=== PATIENT | male | born 2005 | race Caucasian/White ===

== ENCOUNTER 2025-09-09 02:49 | Emergency (ER) | payer BC, SELFPAY ==
--- OUTSIDE RECORDS SUMMARY | 2025-06-02 04:30 | XMS_ITS ---
Author Organization [facility] Accounts Recei vable Address [address] [place] [address] Care Team Providers Care Wet Silk Hanger Name Role Phone Felisa Holcomb Primary Care Provider Flex Xiong [phone] REASON FOR VISIT 1 month f/u doxy jcj Social History Sex Assigned At : Social History Observation Description Sex Assigned At Male Encounters Encounter Location Date Provider Diagnosis [address] [place] [address] 06/02/2025 Flex Xiong Plan Of Treatment No Information Progress Notes * Albert YODER IDOB:2005 (19 yo M)Acc No.[id number]:06/02/2025 Patient: Albert Zaman I External / 10-EC Provider: ARVIN Gomez :2005 A ge:19 Y S ex:Male Date:06/02/2025 Address:[address] [place] [address] [address] [id number] Pcp:Felisa Holcomb Patient's Default Facility:[facility] Data: * Chief Complaints: * 1 month f/u doxy jcj Billing Information: * Procedure Codes: * Electronic signature of ARVIN Morillo on 09/09/2025 at 03:00 AM PENS AND PENCILS REPAIRER Sign off status: Pending Signatures: No Ad Hoc Signature Added * Provider: ARVIN Gomez Date: 0 06/02/2025 Generated for Francisco preston/Maulik/Susan on: 1 11/10/2024 03:00 AM PENS AND PENCILS REPAIRER
--- OUTSIDE RECORDS SUMMARY | 2025-06-03 02:45 | XMS_ITS ---
Author Organization [facility] Accounts Recei vable Address [address] [place] [address] Care Team Providers Care Clinical Data Assistant Name Role Phone Felisa Holcomb Primary Care Provider Jose Laboy [phone] REASON FOR VISIT VVFU-dbright Social History Sex Assigned At : Social History Observation Description Sex Assigned At Male Encounters Encounter Location Date Provider Diagnosis [address] [place] [id number] 06/03/2025 Jose Laboy Plan Of Treatment No Information Progress Notes * Albert YODER IDOB:2005 (19 yo M)Acc No.[id number]:06/03/2025 Patient: Albert Zaman I External / 10-EC Provider: NADIYA Koehler LCSW :2005 A ge:19 Y S ex:Male Date:06/03/2025 Address:[address] [place] [address] [id number] Pcp:Felisa Holcomb Patient's Default Facility:[facility] Data: * Chief Complaints: * V VFU-dbright * Electronic signature of Jose Laboy LCSW on 09/09/2025 at 03:01 AM PRICE CLERK Sign off status: Pending Signatures: No Ad Hoc Signature Added * Provider: NADIYA Koehler, LIFE SKILLS EDUCATOR Date: 0 06/03/2025 Generated for Francisco preston/Maulik/Susan on: 1 11/10/2024 03:01 AM PRICE CLERK
--- OUTSIDE RECORDS SUMMARY | 2025-06-30 08:15 | XMS_ITS ---
Author Organization [facility] Accounts Recei vable Address [address] [place] [address] Care Team Providers Care Leak Inspector Name Role Phone Felisa Holcomb Primary Care Provider [phone] Jose Laboy [phone] REASON FOR VISIT VVFUTher MS Medications Medication SIG (Take, Route, Frequency, Duration) Notes Start Date End Date Status Azithromycin 250 MG Tablet 2 tablets on the first day, then 1 tablet daily for 4 days Orally Once a day; Duration: 5 days 12/23/2023 Not-Taking hydrOXYzine HCl 25 MG Tablet 1 tablet as needed for anxiety Orally twice a day; Duration: 30 days 01/28/2025 Active FLUoxetine HCl 20 MG Capsule 1 capsule O rally Once a day; Duration: 30 days 05/05/2025 Active methylPREDNISolone 4 MG Tablet Therapy Pack as directed Orally as directed; Duration: 6 days 03/01/2025 Active Doxycycline Hyclate 100 MG Capsule 1 capsule Orally twice a day; Duration: 10 days 03/01/2025 Active Augmentin 500-125 MG Tablet 1 tablet Ora lly every 8 hrs; Duration: 10 day(s) 03/25/2020 Not-Taking Laurel Allergy Childrens 30 MG/5ML Suspension 10 ml as needed Orally Twice a day Not-Taking Benzonatate 200 MG Capsule 1 capsule Ora lly Three times a day; Duration: 10 day(s) 03/25/2020 Not-Taking Xofluza (80 MG Dose) 1 x 80 MG Tablet Therapy Pack as directed Orally as directed; Duration: 1 days 09/25/2022 Not-Taking Ondansetron 8 MG Tablet Disintegrating 1 tablet on the tongue and allow to dissolve as needed Orally three times a day, as needed; Duration: 5 days 12/06/2022 Not-Taking Cefdinir 300 MG Capsule 1 cap(s) Orally twice a day; Duration: 10 days 12/03/2022 Not-Taking Doxycycline Hyclate 100 MG Capsule 1 capsule Orally twice a day Not-Taking metroNIDAZOLE 500 MG Tablet 1 tablet Ora lly Three times a day 7 days Not-Taking Albuterol Sulfate HFA 108 (90 Base) MCG/ACT Aerosol Solution INHALE TWO PUFFS BY MOUTH EVERY 4 TO 6 HOURS NEEDED Inhalation every 6 hrs; Duration: 30 days Active Social History Sex Assigned At : Social History Observation Description Sex Assigned At Male Encounters Encounter Location Date Provider Diagnosis [address] [address] 06/30/2025 Jose Laboy Plan Of Treatment No Information Progress Notes * Albert YODER IDOB:2005 (19 yo M)Acc No.[id number]:06/30/2025 Patient: Lorna markpatrickAlbert Ernestine External / 10-EC Provider: NADIYA Koehler LCSW :2005 A ge:19 Y S ex:Male Date:06/30/2025 Address:[address] [place], [place] [id number] Pcp:Felisa Holcomb Patient's Default Facility:[facility] Data: * Chief Complaints: * V VFUTher MS * Medications: T akingAlbuterol Sulfate HFA 108 (90 Base) MCG/ACT Aerosol Solution INHALE TWO PUFFS BY MOUTH EVERY 4 TO 6 HOURS NEEDED Inhalation every 6 hrs Doxycycline Hyclate 100 MG Capsule 1 capsule Orally twice a day methylPREDNISolone 4 MG Tablet Therapy Pack as directed Orally as directed FLUoxetine HCl 20 MG Capsule 1 capsule Orally Once a day hydrOXYzine HCl 25 MG Tablet 1 tablet as needed for anxiety Orally twice a day Taking Albuterol Sulfate HFA 108 (90 Base) MCG/ACT Aerosol Solution INHALE TWO PUFFS BY MOUTH EVERY 4 TO 6 HOURS NEEDED Inhalation every 6 hrs Taking Doxycycline Hyclate 100 MG Capsule 1 capsule Orally twice a day Taking methylPREDNISolone 4 MG Tablet Therapy Pack as directed Orally as directed Taking FLUoxetine HCl 20 MG Capsule 1 capsule Orally Once a day Taking hydrOXYzine HCl 25 MG Tablet 1 tablet as needed for anxiety Orally twice a day Not-TakingmetroNIDAZOLE 500 MG Tablet 1 tablet Orally Three times a day , Notes to Pharmacist: 7 daysDoxycycline Hyclate 100 MG Capsule 1 capsule Orally twice a day Cefdinir 300 MG Capsule 1 cap(s) Orally twice a day Ondansetron 8 MG Tablet Disintegrating 1 tablet on the tongue and allow to dissolve as needed Orally three times a day, as needed Xofluza (80 MG Dose) 1 x 80 MG Tablet Therapy Pack as directed Orally as directed Benzonatate 200 MG Capsule 1 capsule Orally Three times a day Laurel Allergy Childrens 30 MG/5ML Suspension 10 ml as needed Orally Twice a day Augmentin 500-125 MG Tablet 1 tablet Orally every 8 hrs Azithromycin 250 MG Tablet 2 tablets on the first day, then 1 tablet daily for 4 days Orally Once a day Not-Taking metroNIDAZOLE 500 MG Tablet 1 tablet Orally Three times a day , Notes to Pharmacist: 7 daysNot-Taking Doxycycline Hyclate 100 MG Capsule 1 capsule Orally twice a day Not-Taking Cefdinir 300 MG Capsule 1 cap(s) Orally twice a day Not-Taking Ondansetron 8 MG Tablet Disintegrating 1 tablet on the tongue and allow to dissolve as needed Orally three times a day, as needed Not-Taking Xofluza (80 MG Dose) 1 x 80 MG Tablet Therapy Pack as directed Orally as directed Not- Taking Benzonatate 200 MG Capsule 1 capsule Orally Three times a day Not-Taking Laurel Allergy Childrens 30 MG/5ML Suspension 10 ml as needed Orally Twice a day Not- Taking Augmentin 500-125 MG Tablet 1 tablet Orally every 8 hrs Not-Taking Azithromycin 250 MG Tablet 2 tablets on the first day, then 1 tablet daily for 4 days Orally Once a day Billing Information: * Procedure Codes: * Electronic signature of Jose Laboy LCSW on 09/09/2025 at 03:01 AM SKETCH ARTIST Sign off status: Pending Signatures: No Ad Hoc Signature Added * Provider: NADIYA Koehler LCSW Date: Generated for Francisco preston/Maulik/eTransmitting on: 1 11/10/2024 03:01 AM SKETCH ARTIST
[2025-09-09] VITALS (22 sets, daily range): BP systolic 105–132; BP diastolic 69–86; PULSE 70–79; RESP 16–17; TEMP 36.8; O2SAT 91–99; BMI 35.1
--- OUTSIDE RECORDS SUMMARY | 2025-09-09 03:01 | XMS_ITS | Patient Health Record ---
Author Organization [facility] Accounts Recei vable Address [address] [place] [address] Care Team Providers Care Plan Checker Name Role Phone Felisa Holcomb Primary Care Provider Harriet Cabrera Unavailable [phone] Flex Xiong Unavailable [phone] Jose Laboy Unavailable [phone] Allergies Allergen (clinical drug ingredient) Drug/Non Drug Allergy documented on EMR Reaction Allergy Type Onset Date Status amoxicillin / clavulanate Augmentin hives Drug Allergy Active Penicillin Unknown Drug Allergy Active Reason For Referral Reason med mgmt appt Referral Organization [facility] Eliel Referring Provider First Name Harriet Referring Provider Last Name Deborah Referring Provider Speciality Nurse Prac titioner General Notes Suri Villarreal 11/29 09:28:05 AM >Phone call to patients parent lvmtcb, Suri Villarreal 12/21/2024 09:24:33 AM >Phone call to patients parent lvmtcb, KaitlingustavoLora 12/21/2024 11:52:58 AM > pts mother Libertad called back stating she had a missed call regarding his, Suri Villarreal 12/21/2024 11:59:15 AM >Phone call to patients mother. Libertad would like patient to be scheduled with [facility] when her schedule becomes available., Juana Adame 12/23/2024 12:22:33 PM >pt mom called in regards., Suri Villarreal 12/23/2024 03:32:26 PM >patient has been scheduled for appt 01/07, Fatou Villarrealiana 01/07/2025 03:06:29 PM >patient kept appt and HUB has been updated. Thank you Referral Priority Urgent Referral Appointment Date 01/07/2025 Medications Medication SIG (Take, Route, Frequency, Duration) Notes Start Date End Date Status Azithromycin 250 MG Tablet 2 tablets on the first day, then 1 tablet daily for 4 days Orally Once a day; Duration: 5 days 12/23/2023 Not-Taking Augmentin 500-125 MG Tablet 1 tablet Ora [...] 1 capsule Orally twice a day Not-Taking hydrOXYzine HCl 25 MG Tablet 1 tablet as needed for anxiety Orally twice a day; Duration: 30 days 01/28/2025 Active metroNIDAZOLE 500 MG Tablet 1 tablet Ora lly Three times a day 7 days Not-Taking FLUoxetine HCl 20 MG Capsule 1 capsule O rally Once a day; Duration: 30 days 05/05/2025 Active Albuterol Sulfate HFA 108 (90 Base) MCG/ACT Aerosol Solution INHALE TWO PUFFS BY MOUTH EVERY 4 TO 6 HOURS NEEDED Inhalation every 6 hrs; Duration: 30 days Active methylPREDNISolone 4 MG Tablet Therapy Pack as directed Orally as directed; Duration: 6 days 03/01/2025 Active Doxycycline Hyclate 100 MG Capsule 1 capsule Orally twice a day; Duration: 10 days 03/01/2025 Active Immunizations Vaccine Route Administration Date Status Comme [facility] VFC (Infanrix) DTaP Diphther ia Tetanus Toxoids Acellular Purtussis Unknown 02/12/2006 Administered VFC (Infanrix) DTaP Diphther ia Tetanus Toxoids Acellular Purtussis Unknown 04/18/2006 Administered VFC (Infanrix) DTaP Diphther ia Tetanus Toxoids Acellular Purtussis Unknown 06/20/2006 Administered VFC (Infanrix) DTaP Diphther ia Tetanus Toxoids Acellular Purtussis Unknown 2006 Administered VFC (Infanrix) DTaP Diphther ia Tetanus Toxoids Acellular Purtussis Unknown 07/23/2007 Administered VFC (Infanrix) DTaP Diphther ia Tetanus Toxoids Acellular Purtussis Unknown 09/01/2012 Administered VFC (Infanrix) DTaP Diphther ia Tetanus Toxoids Acellular Purtussis Unknown 04/29/2017 Administered VFC (Menactra) Meningococcal MCV4 Unknown 04/29/2017 Ad ministered VFC (Prevnar) pneumococcal 7 valent conjugate vaccine Unknown 02/12/2006 Administered VFC (Prevnar) pneumococcal 7 valent conjugate vaccine Unknown 04/18/2006 Administered VFC (Prevnar) pneumococcal 7 valent conjugate vaccine Unknown 2006 Administered VFC (Recombinant/Engerix-B) Hepatitis B vaccine Unknown 2005 Administered VFC (Recombinant/Engerix-B) Hepatitis B vaccine Unknown 02/12/2006 Administered VFC (Recombinant/Engerix-B) Hepatitis B vaccine Unknown 04/18/2006 Administered VFC (Recombinant/Engerix-B) Hepatitis B vaccine Unknown 06/20/2006 Administered VFC (Recombinant/Engerix-B) Hepatitis B vaccine Unknown 07/23/2007 Administered VFC (Varivax) Varicella Unknown 2006 Administered VFC (Varivax) Varicella Unknown 09/01/2012 Administered VFC Hib (ActHIB) Haemophilus b Conjugate vaccine/Tetanus Toxoid Conjugate Unknown 02/12/2006 Administered VFC Hib (ActHIB) Haemophilus b Conjugate vaccine/Tetanus Toxoid Conjugate Unknown 04/18/2006 Administered VFC Hib (ActHIB) Haemophilus b Conjugate vaccine/Tetanus Toxoid Conjugate Unknown 2006 Administered VFC MMR Measles, Mumps and Rubella Unknown 2006 A dministered VFC MMR Measles, Mumps and Rubella Unknown 09/01/2012 A dministered VFC Polio vaccine/Inactivated (IPV) Unknown 02/12/2006 Administered VFC Polio vaccine/Inactivated (IPV) Unknown 04/18/2006 Administered VFC Polio vaccine/Inactivated (IPV) Unknown 06/20/2006 Administered VFC Polio vaccine/Inactivated (IPV) Unknown 07/23/2007 Administered VFC Polio vaccine/Inactivated (IPV) Unknown 09/01/2012 Administered Social History Tobacco Use: Social History Observation Description Date Details (start date - stop date) Former Smoker NA - NA Sex Assigned At : Social History Observation Description Sex Assigned At Male Social History Social History Social Info Question Answer Notes Health Literacy Screening Co mplete (18+) Health Literacy Screening Completed: Yes Date Completed: 06/23/2024 How often do you need to have someone help you when you read instructions, forms or other written material from your doctor or pharmacy?: 2- Rarely Social Determinants of Health Would you like a staff member from [facility] to help you access community resources that you may qualify for? (Examples: Food, housing, utilities, health insurance, etc) No Select all that apply (Scroll for all options) Medical/Dental Care/Vision,Employment,Health Insurance/Ability to afford copays Date 03/01/2025 patient looking for employment/apartment. Discussed local job fairs [place] [employer] web site. and choosing areas to potentially move to to limit search radius. call was lost. patient returns call - interested in housing - Section 8 housing depending on county. [employer] caleb which will allow search for apartment size / monthly rent amount. patient appreciative. Thank you SDOH Follow-up SDOH: Assistance Provided Assisted by: Sheila Aguilar Date Assisted: 03/11/2025 ROSELINE-7 (2018 Edition) Feeling nervous, anxious, or on e dge Not at all Not being able to stop or control worrying Not a t all Worrying too much about different things Not at all Trouble relaxing Several days Being so restless that it is hard to sit still N ot at all Becoming easily annoyed or irritable More than h shelter the days Feeling afraid as if something awful might happe n Not at all Total ROSELINE-7 Score 3 If you checked any problems, how difficult have they made it for you to do your work, take care of things at home, or get along with other people? Somewhat difficult Interpretation of Total (0 to 4) No Anxiety Smoking Status (12+) Tobacco use: Former smoker Additional Findings: Tobacco user e-cigarette Sexual History: Had sex in the past 12 months (vaginal , oral, or anal) No Have you ever had an STD? No Recreational Drug Use (12+) In the last year, did you ever use recreational drugs or prescription drugs for non-medical reasons?: Yes What kind of recreational drugs? Marijuana In the last year, did you ever find yourself using drugs more than you meant to?: No In the last year, did you ever think maybe you should cut down on drug use?: No Date counseled on the affects of recreational dr ug use 03/01/2025 Alcohol Screening (12+) Did you have a d rink containing alcohol in the past year? Yes How often did you have six or more drinks on one occasion in the past year? Never (0 point) How many drinks did you have on a typical day when you were drinking in the past year? 1 or 2 drinks (0 point) How often did you have a drink containing alcohol in the past year? 2 to 4 times a month (2 points) Points 2 Interpretation Negative Date of Last PHQ-9 Date of Last PHQ 04/08/2025 Date of Tobacco Screening Date of Tobacco Screening Depression Screening PHQ-9 ( If positive PHQ-2) Little interest or pleasure doing things? Not at all Feeling down, depressed, or hopeless? Not at all Trouble falling or staying asleep, or sleeping t oo much? Several days Feeling tired or having little energy? Several d ays Poor appetite or overeating? Not at all Feeling bad about yourself-o r that you are failure or have let yourself or family down? Not at all Trouble concentrating on thi ngs, such as reading the newspaper or watching television? Not at all Moving or speaking so slowly that other people could have noticed. Or the opposite- being so fidgety or restless that you have been moving around a lot more than usual Not at all Thoughts that you would be b neel off , or of hurting yourself in some way? Not at all Total Score 2 Intepretation Minimal Depression PHQ2 (12+) Little interest or pleasure in doing thin gs? Several days Feeling down, depressed, or hopeless? Several da ys Total Score 2 Problems Problem Type SNOMED Code ICD Code Onset Dates Problem Status W/U Status Risk Notes Problem Cough (78846667) Cough (R05) Active confirmed Problem Sinusitis (24470513) Sinusitis (J32.9) Active confirmed Problem Anxiety (19305224) Anxiety (F41.9) Active confirmed Problem Maxillary sinusitis (39170867) Maxillary sinusitis (J32.0) Active confirmed Problem Autism spectrum disorder (74153341) Autism spectrum disorder (F84.0) Active confirmed Problem Asthma without status asthmaticus (75034873) Reactive airway disease, unspecified asthma severity, uncomplicated (J45.909) Active confirmed Problem Moderate recurrent major depression (75962464) Moderate episode of recurrent major depressive disorder (F33.1) Active confirmed Problem Difficulty sleeping (487907451) Sleep difficulties (G47.9) Active confirmed Vital Signs Heart Rate 90 BPM 03/01/2025 Temperature 97.3 degrees Fahrenheit 03/01/2025 Respiratory Rate 20 /min 03/01/2025 Oximetry 978 Percent 03/01/2025 Blood pressure diastolic 76 mm Hg 03/01/2025 BMI Percentile 99.17 03/01/2025 Height 73 in 03/01/2025 Blood pressure systolic 128 mm Hg 03/01/2025 Weight 275.8 lbs 03/01/2025 BMI 36.38 kg/m2 03/01/2025 Encounters Encounter Location Date Provider Diagnosis [address] [address] 12/07/2024 Harriet Cabrera [address] [address] 12/16/2024 Harriet Cabrera [address] [address] 12/23/2024 Felisa Holcomb [address] [address] 01/07/2025 Felisa Holcomb [facility] [address] [place] [address] 01/11/2025 Felisa Holcomb [facility] [address] [place] [address] 01/14/2025 Flex Xiong [facility] [address] [place] [address] 02/23/2025 Felisamacario Holcomb [facility] [address] [place] [address] 02/23/2025 [facility] [address] [facility] [place] [address] 03/01/[facility] [address] [facility] [place] [address] 03/01/2025 Flex Xiong [facility] [address] [facility] [place] [address] 03/09/2025 [facility] [address] [facility] [place] [address] 03/11/2025 Felisa [facility] [address] [place] [address] 04/27/[address] [address] 05/10/2025 Felisa [facility] [address] [place] [address] 05/13/2025 Jose Laboy [address] [address] 06/02/2025 Flex Xiong Anxiety F41.9 [facility] [address] [facility] [place] [address] 06/08/2025 Jose Laboy [facility] [address] [facility] [place] [address] 06/30/2025 Jose Laboy [facility] [address] [facility] [place] [address] 07/12/2025 Jose Laboy [address] [place] [phone] 09/06/2025 Felisa Zhang [facility] [address] [facility] [place] [address] 03/01/2025 Felisa Zhang Maxillary sinusitis J32.0 ; Wheezing R06.2 ; Acute cough R05.1 and Shortness of breath R06.02 [facility] [address] [place] [address] 03/01/2025 Flex Xiong Moderate episode of recurrent major depressive disorder F33.1 and Anxiety F41.[address] [place] [address] 01/28/2025 Flex Xiong Anxiety F41.9 and Moderate episode of recurrent major depressive disorder F33.[address] [place] [address] 01/07/2025 Jose Narda Anxiety F41.9 and Depression, unspecified depression type F32.A [address] [id number] 03/30/2025 Flex Xiong Anxiety F41.9 and Moderate episode of recurrent major depressive disorder F33.[address] [id number] 05/05/2025 Flex Xiong Moderate episode of recurrent major depressive disorder F33.1 ; Anxiety F41.9 and Sleep difficulties G47.[address] [id number] 05/25/2025 Flex Xiong Moderate episode of recurrent major depressive disorder F33.1 and Anxiety F41.[address] [place] [address] 04/08/2025 Josetabatha Laboy Autism spectrum disorder F84.0 ; Moderate episode of recurrent major depressive disorder F33.1 and Anxiety F41.[address] [place] [address] 03/02/2025 Jose Bramwell Anxiety F41.9 and Moderate episode of recurrent major depressive disorder F33.[address] [place] [address] 03/18/2025 Jose Bramwell Moderate episode of recurrent major depressive disorder F33.1 ; Anxiety F41.9 and Autism spectrum disorder F84.[address] [place] [address] 02/01/2025 Joes Narda Anxiety F41.9 and Moderate episode of recurrent major depressive disorder F33.1 Assessments Encounter Date Diagnosis (ICD Code) Assessment Notes Treatment Notes Treatment Clinical Notes Section Notes 01/07/2025 Anxiety (ICD-10 - F41.9) 01/07/2025 Depression, unspecified depression type (ICD-10 - F32.A) 01/28/2025 Anxiety (ICD-10 - F41.9) 01/28/2025 Moderate episode of recurrent major depressive disorder (ICD-10 - F33.1) 02/01/2025 Anxiety (ICD-10 - F41.9) 03/01/2025 Wheezing (ICD-10 - R06.2) 03/01/2025 Maxillary sinusitis (ICD-10 - J32.0) Patient symptoms are consistent with acute sinusitis. Medications as prescribed. Recommneded saline nasal washes, fluids, rest and motrin for symtpom relief. We discussed worsening s/s when to RTC or go to Er. All questions were addressed, agrees with tx plan. 03/01/2025 Anxiety (ICD-10 - F41.9) 03/01/2025 Moderate episode of recurrent major depressive disorder (ICD-10 - F33.1) 03/02/2025 Anxiety (ICD-10 - F41.9) 03/02/2025 Moderate episode of recurrent major depressive disorder (ICD-10 - F33.1) 04/08/2025 Autism spectrum disorder (ICD-10 - F84.0) 04/08/2025 Moderate episode of recurrent major depressive disorder (ICD-10 - F33.1) 05/05/2025 Anxiety (ICD-10 - F41.9) 05/05/2025 Moderate episode of recurrent major depressive disorder (ICD-10 - F33.1) 05/25/2025 Anxiety (ICD-10 - F41.9) 05/25/2025 Moderate episode of recurrent major depressive disorder (ICD-10 - F33.1) 06/02/2025 Anxiety (ICD-10 - F41.9) 03/30/2025 Anxiety (ICD-10 - F41.9) 03/30/2025 Moderate episode of recurrent major depressive disorder (ICD-10 - F33.1) 03/18/2025 Anxiety (ICD-10 - F41.9) 03/18/2025 Moderate episode of recurrent major depressive disorder (ICD-10 - F33.1) 03/18/2025 Autism spectrum disorder (ICD-10 - F84.0) 05/05/2025 Sleep difficulties (ICD-10 - G47.9) 04/08/2025 Anxiety (ICD-10 - F41.9) 03/01/2025 Acute cough (ICD-10 - R05.1) 02/01/2025 Moderate episode of recurrent major depressive disorder (ICD-10 - F33.1) 03/01/2025 Shortness of breath (ICD-10 - R06.02) 01/28/2025 Other Patient has history of depression and anxiety, and due to life changes has extra stress right now. Will start escitalopram and hydroxyzine and follow up in one month. patient verbalizes understanding and agrees with plan. -Reviewed diagnostic criteria for depression and anxiety -Reviewed previous records-Reviewed medications, updated medication list -Reviewed Plans for medication management New orders for:Medications: as listedLabs ordered:Follow up: 1 month Discussed options for management including (as applicable): -With respect to medications, I have provided ongoing education regarding the purpose and indications (including off-label use when applicable), risks (including related to alcohol intake, operating heavy machinery when applicable), benefits, side effects, alternatives, contraindication s, rationale for use, importance of adherence, potential drug interactions, and plans for appropriate monitoring.-Revi ewed communication plan if problems-Continu e follow up with PCP for preventive care and management of medical issues Self-care : General Anxiety Disorder Other than taking medicine and going to therapy, you can help yourself get better by: 1 Reducing caffeine [address] 3 Exercising, getting enough rest, and eating healthy foods 4 Consider Talk therapy 5 Consider Group therapyNo matter what type of depression you have and how severe it is, the following self-care steps can help: Get enough sleep. Follow a healthy, nutritious diet. Exercise regularly. Avoid alcohol, marijuana, and other recreational drugs. Get involved in activities that make you happy. Spend time with family and friends. If you are a adventist or spiritual person, talk to a event staff member or travel money advisor. Consider meditation, gini chi, or other relaxation methods. Add omega-3 fatty acids to your diet. You can get them from lloq-ads-bghppke supplements or by eating fish such as tuna, salmon, or mackerel. When to Contact a Medical Professional Call 911, a suicide hotline, or go to a nearby emergency room if you have thoughts of harming yourself or others. Call your doctor if: You hear voices that are not there. You cry often without cause. Your depression has affected your work, school, or family life for longer than 2 weeks. You have three or more symptoms of depression. You think one of your current medications may be making you feel depressed -- DO NOT change or stop taking any medications without talking to your doctor. You think you should cut back on drinking, a family member or friend has asked you to cut back, you feel guilty about the amount of alcohol you drink, or you drink alcohol first thing in the morning. QUALITY TECHNICIAN/Depression - call with any suicidal ideations, encourage support. 03/01/2025 Other A Healthy Lifestyle: Care Instructions material was printed 03/01/2025 Other will increase escitalopram to 10 mg to help with current depression and anxiety symptoms and to follow up in one month. Reviewed medications, updated medication list Discussed options for management Medications:as listed Labs ordered: Follow up:1 month Discussed options for management including (as applicable): -With respect to medications, I have provided ongoing education regarding the purpose and indications (including off-label use when applicable), risks (including related to alcohol intake, operating heavy machinery when applicable), benefits, side effects, alternatives, contraindication s, rationale for use, importance of adherence, potential drug interactions, and plans for appropriate monitoring. -Reviewed communication plan if problems -Continue follow up with PCP for preventive care and management of medical issues Self-care : General Anxiety Disorder Other than taking medicine and going to therapy, you can help yourself get better by: 1 Reducing caffeine [address] 3 Exercising, getting enough rest, and eating healthy foods 4 Consider Talk therapy 5 Consider Group therapy No matter what type of depression you have and how severe it is, the following self-care steps can help: Get enough sleep. Follow a healthy, nutritious diet. Exercise regularly. Avoid alcohol, marijuana, and other recreational drugs. Get involved in activities that make you happy. Spend time with family and friends. If you are a adventist or spiritual person, talk to a event staff member or travel money advisor. Consider meditation, gini chi, or other relaxation methods. Add omega-3 fatty acids to your diet. You can get them from btle-bnc-vynpitm supplements or by eating fish such as tuna, salmon, or mackerel. When to Contact a Medical Professional Call 911, a suicide hotline, or go to a nearby emergency room if you have thoughts of harming yourself or others. Call your doctor if: You hear voices that are not there. You cry often without cause. Your depression has affected your work, school, or family life for longer than 2 weeks. You have three or more symptoms of depression. You think one of your current medications may be making you feel depressed -- DO NOT change or stop taking any medications without talking to your doctor. You think you should cut back on drinking, a family member or friend has asked you to cut back, you feel guilty about the amount of alcohol you drink, or you drink alcohol first thing in the morning. QUALITY TECHNICIAN/Depression - call with any suicidal ideations, encourage support. 03/30/2025 Other Patient has had improvements in his living arrangement and is getting a new job. He is also getting along better with is parents. Will continue current regimen and follow up in 2 months Reviewed medications, updated medication list Discussed options for management Medications:as listed Labs ordered: Follow up: 2 months Discussed options for management including (as applicable): -With respect to medications, I have provided ongoing education regarding the purpose and indications (including off-label use when applicable), risks (including related to alcohol intake, operating heavy machinery when applicable), benefits, side effects, alternatives, contraindication s, rationale for use, importance of adherence, potential drug interactions, and plans for appropriate monitoring. -Reviewed communication plan if problems -Continue follow up with PCP for preventive care and management of medical issues Self-care : General Anxiety Disorder Other than taking medicine and going to therapy, you can help yourself get better by: 1 Reducing caffeine [address] 3 Exercising, getting enough rest, and eating healthy foods 4 Consider Talk therapy 5 Consider Group therapy No matter what type of depression you have and how severe it is, the following self-care steps can help: Get enough sleep. Follow a healthy, nutritious diet. Exercise regularly. Avoid alcohol, marijuana, and other recreational drugs. Get involved in activities that make you happy. Spend time with family and friends. If you are a adventist or spiritual person, talk to a event staff member or travel money advisor. Consider meditation, gini chi, or other relaxation methods. Add omega-3 fatty acids to your diet. You can get them from wirr-wnh-cgjfohv supplements or by eating fish such as tuna, salmon, or mackerel. When to Contact a Medical Professional Call 911, a suicide hotline, or go to a nearby emergency room if you have thoughts of harming yourself or others. Call your doctor if: You hear voices that are not there. You cry often without cause. Your depression has affected your work, school, or family life for longer than 2 weeks. You have three or more symptoms of depression. You think one of your current medications may be making you feel depressed -- DO NOT change or stop taking any medications without talking to your doctor. You think you should cut back on drinking, a family member or friend has asked you to cut back, you feel guilty about the amount of alcohol you drink, or you drink alcohol first thing in the morning. QUALITY TECHNICIAN/Depression - call with any suicidal ideations, encourage support. 05/05/2025 Other Patient is stable on current medications and reports the inpatient episode was due to him not taking meds for a few days. Denies si/hi/avh and will continue current regimen. Dsicssed weaning from clonazepam and following up in one month. Reviewed medications, updated medication list Discussed options for management Discussed options for management including (as applicable): -With respect to medications, I have provided ongoing education regarding the purpose and indications (including off-label use when applicable), risks (including related to alcohol intake, operating heavy machinery when applicable), benefits, side effects, alternatives, contraindication s, rationale for use, importance of adherence, potential drug interactions, and plans for appropriate monitoring. -Reviewed communication plan if problems -Continue follow up with PCP for preventive care and management of medical issues Self-care : General Anxiety Disorder Other than taking medicine and going to therapy, you can help yourself get better by: 1 Reducing caffeine [address] 3 Exercising, getting enough rest, and eating healthy foods 4 Consider Talk therapy 5 Consider Group therapy No matter what type of depression you have and how severe it is, the following self-care steps can help: Get enough sleep. Follow a healthy, nutritious diet. Exercise regularly. Avoid alcohol, marijuana, and other recreational drugs. Get involved in activities that make you happy. Spend time with family and friends. If you are a adventist or spiritual person, talk to a event staff member or travel money advisor. Consider meditation, gini chi, or other relaxation methods. Add omega-3 fatty acids to your diet. You can get them from zdea-joz-qislkxy supplements or by eating fish such as tuna, salmon, or mackerel. When to Contact a Medical Professional Call 911, a suicide hotline, or go to a nearby emergency room if you have thoughts of harming yourself or others. Call your doctor if: You hear voices that are not there. You cry often without cause. Your depression has affected your work, school, or family life for longer than 2 weeks. You have three or more symptoms of depression. You think one of your current medications may be making you feel depressed -- DO NOT change or stop taking any medications without talking to your doctor. You think you should cut back on drinking, a family member or friend has asked you to cut back, you feel guilty about the amount of alcohol you drink, or you drink alcohol first thing in the morning. QUALITY TECHNICIAN/Depression - call with any suicidal ideations, encourage support. 05/25/2025 Other Patient stable and will continue current regimen. Reviewed medications, updated medication list Discussed options for management Discussed options for management including (as applicable): -With respect to medications, I have provided ongoing education regarding the purpose and indications (including off-label use when applicable), risks (including related to alcohol intake, operating heavy machinery when applicable), benefits, side effects, alternatives, contraindication s, rationale for use, importance of adherence, potential drug interactions, and plans for appropriate monitoring. -Reviewed communication plan if problems -Continue follow up with PCP for preventive care and management of medical issues Self-care : General Anxiety Disorder Other than taking medicine and going to therapy, you can help yourself get better by: 1 Reducing caffeine [address] 3 Exercising, getting enough rest, and eating healthy foods 4 Consider Talk therapy 5 Consider Group therapy No matter what type of depression you have and how severe it is, the following self-care steps can help: Get enough sleep. Follow a healthy, nutritious diet. Exercise regularly. Avoid alcohol, marijuana, and other recreational drugs. Get involved in activities that make you happy. Spend time with family and friends. If you are a adventist or spiritual person, talk to a event staff member or travel money advisor. Consider meditation, gini chi, or other relaxation methods. Add omega-3 fatty acids to your diet. You can get them from lrdk-syr-bxexcyl supplements or by eating fish such as tuna, salmon, or mackerel. When to Contact a Medical Professional Call 911, a suicide hotline, or go to a nearby emergency room if you have thoughts of harming yourself or others. Call your doctor if: You hear voices that are not there. You cry often without cause. Your depression has affected your work, school, or family life for longer than 2 weeks. You have three or more symptoms of depression. You think one of your current medications may be making you feel depressed -- DO NOT change or stop taking any medications without talking to your doctor. You think you should cut back on drinking, a family member or friend has asked you to cut back, you feel guilty about the amount of alcohol you drink, or you drink alcohol first thing in the morning. QUALITY TECHNICIAN/Depression - call with any suicidal ideations, encourage support. Plan Of Treatment No Information Insurance Providers Payer Name Payer Address Payer Phone Subscriber Number Group Number Insured Name Patient Relationship to Insured Coverage Start Date Coverage End Date [facility] [employer] [address] [place] [address] [id number] [place] Child - Insured has Financial Responsibility Medications Administered Medication Instructions Date of Administration Dosage Notes dexAMETHasone (LA) 02/17/2024 1 mL verifi ed by Felisa Holcomb APRN dexAMETHasone Sodium Phosphate 02/17/2024 1 mL verified by Katey Holcomb APRN Medical (General) History Medical History History ICD Code depression Anxiety disorder Surgical History Surgery Date(Month/Year) appendectomy 2019 Hospitalization History Reason Date(Month/Year) [facility] ER- Dog Attack
--- OUTSIDE RECORDS SUMMARY | 2025-09-09 03:01 | XMS_ITS | Clinical Summary ---
Author Organization [facility] Address [address] [place] [address] Care Team Providers Care Post Partum Nurse Name Role Phone [facility], [facility] Care Provider Allergies No known active allergies Medications No known medications Active Problems Problem Noted Date Diagnosed Date S/P laparoscopic appendectomy 09/21/2020 Resolved Problems Problem Noted Date Diagnosed Date Resolved Date Acute appendicitis with loca lized peritonitis, without perforation or gangrene 09/14/2020 09/21/2020 Social History Tobacco Use Types Packs/Day Years Used Date Smoking Tobacco: Never Smokeless Tobacco: Never Alcohol Use Standard Drinks/Week Comments Never 0 (1 standard drink = 0.6 oz pur e alcohol) AUDIT-C Answer Date Recorded Q1: How often do you have a drink containing alc ohol? Never 09/21/2020 Average Number of Drinks Not on file 020 Frequency of Binge Drinking Not on file 08/31 [facility] SN - Housing Stability Answer Date Recorded Housing Stability Not on file 09/08/2023 Housing Problems Not on file 09/08/2023 Sex and Gender Information Value Date Recorded Sex Assigned at Not on file Legal Sex Male 12:53 PM [employer] Gender Identity Not on file Sexual Orientation Not on file Last Filed Vital Signs Vital Sign Reading Time Taken Comments Blood Pressure 117/76 09/21/2020 10:07 AM [employer] Pulse 75 09/21/2020 10:07 AM [employer] Temperature 36.5 C (97.7 F) 09/21/2020 10:07 AM [employer] Respiratory Rate 18 09/16/2020 9:05 PM [employer] Oxygen Saturation 96% 09/21/2020 10:07 AM [employer] Inhaled Oxygen Concentration - - Weight 103.9 kg (229 lb) 09/21/2020 10:07 AM [employer] Height 177.8 cm (5' 10 ) 09/21/2020 10:07 AM [employer] Body Mass Index 32.86 09/21/2020 10:07 AM [employer] Body Mass Index Percentile 98.48% 09/21/2020 10: 07 AM [employer] Growth Chart: [facility] (Boys, 2-2 0 Years) Plan of Treatment Health Maintenance Due Date Last Done Comments General Annual Wellness Visit 2005 Tobacco Use Screening 2005 Lipid Screening 2014 HPV Vaccines (1 - Male 3-dose series) 2020 Meningococcal ACWY Vaccine (2 - 2-dose series) 2021 04/29/2017 COVID-19 Vaccine (1 - 2024- season) 2025 Influenza Vaccine (#1) 2025 DTaP,Tdap,and Td Vaccines (7 - Td or Tdap) 04/29/2027 04/29/2017, 09/01/2012, 07/23/2007, Additional history exists Shingles Vaccine (1 of 2) 12/14/2055 09/01/2012, HIB Vaccines Completed 2006, 03/31, 02/12/2006 Pneumococcal Vaccine Childhood & At Risk Aged Out 2006, 04/18/2006, 02/12/2006 No longer eligible based on patient's age to complete this topic Hepatitis B Vaccines Completed 07/23/2007, 06/20/2006, 04/18/2006, Additional history exists IPV Vaccines Completed 09/01/2012, 07/01, 06/20/2006, Additional history exists MMR Vaccines Completed 09/01/2012, 2006 Varicella Vaccines Completed 09/01/2012, 2006 Hepatitis A Vaccines Aged Out No long er eligible based on patient's age to complete this topic RSV Vaccine (under 20 mo) Aged Out No longer eligible based on patient's age to complete this topic Rotavirus Vaccines Aged Out No longer eligible based on patient's age to complete this topic Insurance BLUE CARD Advance Directives Healthcare Agents on File Name Relationship Healthcare Agent Relationshi p Communication Vinod Yoder Father Yes - Makes deci sions when patient is unable to Care Teams Post Partum Nurse Relationship Specialty Start Date End Date [facility], [facility] [address] [place] [address] [place] [address] PCP - General 09/14/20
--- NOTE | 2025-09-09 04:12 | XRR_ITS ---
PROCEDURE INFORMATION: Exam: XR Chest Exam date and time: 09/09/2025 4:17 AM Age: 19 years old Clinical indication: Cough; Additional info: Cough/crackles TECHNIQUE: Imaging protocol: Radiologic exam of the chest. Views: 2 views. COMPARISON: No relevant prior studies available. FINDINGS: Lungs: Unremarkable. No consolidation. Pleural spaces: Unremarkable. No pleural effusion. No pneumothorax. Heart/Mediastinum: Unremarkable. No cardiomegaly. Bones/joints: Unremarkable. XR/XR chest 2V* [id number] IMPRESSION: No acute findings.
[2025-09-09 05:03] LABS: Respiratory Syncytial Virus Ce NEGATIVE (Negative); SARS-CoV-2 PCR NEGATIVE (Negative)
[2025-09-09 05:41] LABS: Glucose Urine UA Negative (Normal); Nitrate Urine Negative (Negative)
[2025-09-09 05:46] LABS: Add Urine Microscopic? YES; Specific Gravity, Urine 1.035 (1.005-1.030)
[2025-09-09 06:10] LABS: Hematocrit 47.4 % (37-53); Hemoglobin 15.70 g/dL (13.2-15.6); Mean Corpuscular HGB Conc 33.1 g/dL (30-55); Mean Corpuscular Hemoglobin 27.0 pg (27-33); Mean Corpuscular Volume 81.6 fl (82-101); Nucleated Red Blood Cells % 0 %; Platelet Count 247 10^3/cmm (157-399); Red Blood Count 5.81 10^6/uL (3.85-5.65); White Blood Count 10.18 10^3/uL (4.5-13.0)
--- NOTE | 2025-09-09 06:30 | W.ED.GENADLT ---
HPI - General Adult General: Chief complaint: Upper Respiratory Infection Stated complaint: Vomiting, Coughing, Drainage Time Seen by Provider: 09/09/25 04:08 History of Present Illness: Patient is a 19-year-old male with a history of asthma/reactive airway disease presents with a chief complaint of 1 week of nonproductive cough, post tussive emesis this evening. Patient states this has been ongoing for 1 week. Patient has had headaches, malaise but denies fever, productive cough, chest pain, shortness of breath, syncope, hemoptysis, lower extremity swelling or edema. Patient denies abdominal pain, current nausea, diarrhea or difficulty with urination. Of note, patient's girlfriend is being seen for upper respiratory symptoms as well. Related Data Previous Rx's ?Medication ?Instructions ?Recorded albuterol sulfate 90 mcg/actuation 2 puff inhalation Q4H PRN 09/09/25 aerosol inhaler (Ventolin HFA) shortness of breath or wheezing #8.5 grams Allergies Allergy/AdvReac Type Severity Reaction Status Date / Time Penicillins Allergy Unknown Verified 09/09/25 03:06 Physical Exam Narrative: EXAM NARRATIVE: Vital signs were reviewed. Patient is alert and oriented. Patient is breathing comfortably, no increased WOB or accessory muscle use. SpO2 is above 92% on RA. Patient has clear lungs b/l, no rhonchi or crackles. +Mild intermittent wheezing on expiration.No hypotension or tachycardia. Abdomen is soft, nondistended and nontender. Patient is moving all extremities, no deformity or gross injury. No lower extremity edema or asymmetry. Course Vital Signs: Vital signs: Vital Signs Temperature 98.3 F 09/09/25 03:01 Pulse Rate 79 09/09/25 06:43 Respiratory Rate 17 09/09/25 06:11 Blood Pressure 105/73 09/09/25 06:43 Pulse Oximetry 95 09/09/25 06:43 Oxygen Delivery Me thod Room Air 09/09/25 06:11 [facility] - General Adult Medical Decision Making 19-year-old male with a chief complaint of cough, posttussive emesis, malaise for 1 week. Differential diagnosis includes but is limited to, COVID-19, influenza, bronchitis, asthma exacerbation, pneumonia, pericarditis, myocarditis, heart failure, other. On exam patient is helically stable and nontoxic-appearing. Patient has mild expiratory wheezing which she was treated with breathing treatment. He was evaluated CBC, CMP, lipase, BNP, UA, COVID and flu screen and chest x-ray. Patient has a normal white blood cell count and is not anemic. He does not have any actionable electrolyte abnormalities. Patient has normal kidney function, liver function and lipase. BNP is within normal limits. UA does not show evidence of infection or hematuria. Patient is negative for flu, COVID and RSV but notably his girlfriend tested positive for influenza A today. Chest x-ray does not show acute findings. Presentation is most consistent with postviral cough syndrome, posttussive emesis due to recent viral upper respiratory infection and mild asthma exacerbation. Patient is appropriate for outpatient management at this time. Patient was counseled on supportive care at home, given return precautions and discharged in stable condition with recommendation for outpatient follow-up with primary care nurse or doctor. Lab Data 09/09/25 06:02 09/09/25 06:02 Radiology Impressions Chest X-Ray 09/09/25 04:12 IMPRESSION: No acute findings. Laboratory Results WBC 10.18 10^3/uL (4.5-13.0) 09/09/25 06:02 RBC 5.81 10^6/uL (3.85-5.65) H 09/09/25 06:02 Hgb 15.70 g/dL (13.2-15.6) H 09/09/25 06:02 Hct 47.4 % (37-53) 09/09/25 06:02 MCV 81.6 fl (82-101) L 09/09/25 06:02 MCH 27.0 pg (27-33) 09/09/25 06:02 MCHC 33.1 g/dL (30-55) 09/09/25 06:02 RDW 12.9 % (12.1-15.1) 09/09/25 06:02 Plt Count 247 10^3/cmm (157-399) 09/09/25 06:02 MPV 9.5 fL (7.4-10.4) 09/09/25 06:02 Neut % (Auto) 49.1 % 09/09/25 06:02 Lymph % (Auto) 32.8 % 09/09/25 06:02 [place] % (Auto) 5.5 % 09/09/25 06:02 Eos % (Auto) 12.0 % 09/09/25 06:02 Baso % (Auto) 0.5 % 09/09/25 06:02 Neut # (Auto) 5.00 10^3/uL (1.8-8.0) 09/09/25 06:02 Lymph # (Auto) 3.3 10^3/uL (1.5-6.5) 09/09/25 06:02 [place] # (Auto) 0.6 10^3/uL (0.2-0.9) 09/09/25 06:02 Eos # (Auto) 1.2 10^3/uL (0.0-0.8) H 09/09/25 06:02 Baso # (Auto) 0.1 10^3/uL (0.0-0.1) 09/09/25 06:02 Nucleated RBC % (auto) 0 % 09/09/25 06:02 Nucleated RBCs # 0.0 /100WBC 09/09/25 06:02 Sodium 141 mmol/L (136-145) 09/09/25 06:02 Potassium 4.2 mmol/L (3.5-5.1) 09/09/25 06:02 Chloride 103 mmol/L (98-107) 09/09/25 06:02 Carbon Dioxide 25 mmol/L (22-29) 09/09/25 06:02 Anion Gap 17.2 (5-19) 09/09/25 06:02 BUN 10 mg/dL (6-20) 09/09/25 06:02 Creatinine 0.9 mg/dL (0.7-1.2) 09/09/25 06:02 GFR Calculation 108.7 mL/min (90-130) 09/09/25 06:02 Glucose 93 mg/dL (65-115) 09/09/25 06:02 Calculated Osmolality 291 mOsm/kg (285-295) 09/09/25 06:02 Calcium 9.4 mg/dL (8.5-10.5) 09/09/25 06:02 Total Bilirubin 0.7 mg/dL (0.15-1.2) 09/09/25 06:02 AST 16 U/L (0-40) 09/09/25 06:02 ALT 14 U/L (0-41) 09/09/25 06:02 Alkaline Phosphatase 111 U/L (40-130) 09/09/25 06:02 NT-Pro-B Natriuret Pep < 36 pg/mL (0-125) 09/09/25 06:02 Total Protein 7.3 g/dL (6.6-8.7) 09/09/25 06:02 Albumin 4.5 g/dL (3.5-5.2) 09/09/25 06:02 Globulin 2.8 g/dL (1.3-4.6) 09/09/25 06:02 Lipase 15 U/L (13-60) 09/09/25 06:02 Urine Color Dark yellow (Yellow) A 09/09/25 05:29 Urine Appearance Clear (CLEAR) 09/09/25 05:29 Urine pH 5.5 (5-7) 09/09/25 05:29 Ur Specific [place] 1.035 (1.005-1.030) H 09/09/25 05:29 Urine Protein Trace (Negative) A 09/09/25 05:29 Urine Glucose (UA) Negative (Normal) 09/09/25 05:29 Urine Ketones Trace (Negative) 09/09/25 05:29 Urine Blood Negative (Negative) 09/09/25 05:29 Urine Nitrate Negative (Negative) 09/09/25 05:29 Urine Bilirubin Negative (Negative) 09/09/25 05:29 Urine Urobilinogen 1.0 mg/dL (Negative) 09/09/25 05:29 Ur Leukocyte Esterase Negative (Negative) 09/09/25 05:29 Urine RBC 0-2 /hpf (0-2) 09/09/25 05:29 Urine WBC 0-5 /hpf (0-5) 09/09/25 05:29 Ur Squamous Epith Cells 0-5 /hpf (0-5) 09/09/25 05:29 Amorphous Sediment Not Reportable 09/09/25 05:29 Urine Bacteria None seen /hpf (NONE) 09/09/25 05:29 Hyaline Casts 6.61 /lpf 09/09/25 05:29 Influenza A (PCR) Negative (Negative) 09/09/25 04:20 Influenza Type B (PCR) Negative (Negative) 09/09/25 04:20 RSV (PCR) Negative (Negative) 09/09/25 04:20 SARS-CoV-2 (PCR) Negative (Negative) 09/09/25 04:20 All radiology interpretation(s) finalized by discharge Discharge Plan Discharge Patient Disposition: Home Clinical Impression: Post-viral cough syndrome, Exposure to influenza Asthma exacerbation Qualifiers: Asthma severity: mild Asthma persistence: intermittent Qualified Code(s): J45.21 - Mild intermittent asthma with (acute) exacerbation Condition: Stable Prescriptions: New albuterol sulfate [Ventolin HFA] 90 mcg/actuation HFA aerosol inhaler 2 puff inhalation Q4H PRN (Reason: shortness of breath or wheezing) Qty: 8.5 2RF Discharge Orders: Discharge ED (Routine); Ordered 09/09/25 Ordered By: Ivis Lindsey Patient Instructions: Asthma (ED), Acute Cough (ED), Opioid Safety, Pain Management, Patient Portal & Ramon Instructions Activity Restrictions/Additional Instructions: Please continue to monitor your condition closely at home. Use your inhaler for shortness of breath or wheezing. For cough, you may use ozyg-fqm-[id number] cough medication such as Delsym or Robitussin. If your condition worsens or additional concerns arise, please return promptly to the emergency department for reassessment. Follow up with your primary care doctor in one week. Print Language: Mongolian Coding Level of Care Code ED Ophthalmic Technician Apprentice for Hermes Babcock
[2025-09-09 07:17] LABS: Alanine Aminotransferase 14 U/L (0-41); Albumin Level 4.5 g/dL (3.5-5.2); Alkaline Phosphatase 111 U/L (40-130); Anion Gap 17.2 (5-19); Aspartate Amino Transferase 16 U/L (0-40); Blood Urea Nitrogen 10 mg/dL (6-20); Calcium 9.4 mg/dL (8.5-10.5); Carbon Dioxide 25 mmol/L (22-29); Chloride 103 mmol/L (98-107); Globulin 2.8 g/dL (1.3-4.6); Glucose 93 mg/dL (65-115); Lipase 15 U/L (13-60); NT Pro B Type Natriuretic Pept < 36 pg/mL (0-125); Osmolality Calculated 291 mOsm/kg (285-295); Potassium 4.2 mmol/L (3.5-5.1); Sodium 141 mmol/L (136-145); Total Protein 7.3 g/dL (6.6-8.7)
== END 2025-09-09 06:44 | disposition home or self-care (01) ==
PROVIDERS: Emergency Provider Emergency Medicine
DX: G93.31 Postviral fatigue syndrome (principal); R05.9 Cough, unspecified; Z20.828 Contact with and (suspected) exposure to other viral communicable diseases; J45.21 Mild intermittent asthma with (acute) exacerbation; Z11.52 Encounter for screening for COVID-19
CPT/HCPCS: 71046; 80053; 81001; 83690; 83880; 85025; 87637; 94640; 99284; J8540; J9999